=== PATIENT | female | born 1990 | race Caucasian/White ===

== ENCOUNTER 2021-04-01 10:19 | Emergency (ER) | payer MEDICAID ==
[~2021-04-01] VITALS: Ht 157.5 cm; Wt 72.7 kg
[2021-04-01 11:11] VITALS: BP 136/87
== END 2021-04-01 15:48 | disposition left against medical advice (07) ==
LOC: ER 10:19
DX: J02.9 Acute pharyngitis, unspecified (principal); Z53.21 Procedure and treatment not carried out due to patient leaving prior to being seen by health care provider
CPT/HCPCS: 87081; 87880